=== PATIENT | female | born 1985 | race Two or more races ===

== ENCOUNTER 2019-04-13 12:36 | Emergency (ER) | payer OTHER ==
[~2019-04-13] VITALS: Ht 167.6 cm; Wt 99.3 kg
[2019-04-13] MEDS ORDERED: FORTAMET500 MG PO (14:14)
== END 2019-04-13 21:35 | disposition home or self-care (01) ==
LOC: ER 12:36
DX: K52.9 Noninfective gastroenteritis and colitis, unspecified (principal)

== ENCOUNTER 2019-10-12 18:15 | Emergency (ER) | payer OTHER ==
[~2019-10-12] VITALS: Ht 162.6 cm; Wt 102.1 kg
[~2019-10-12 18:15] MED LIST: FORTAMET500 MG PO
== END 2019-10-12 23:21 | disposition home or self-care (01) ==
LOC: ER 18:15
DX: R11.2 Nausea with vomiting, unspecified (principal); R10.817 Generalized abdominal tenderness; T38.3X5A Adverse effect of insulin and oral hypoglycemic [antidiabetic] drugs, initial encounter; Y92.89 Other specified places as the place of occurrence of the external cause